=== PATIENT | female | born 1945 | race African-American/Black ===

== ENCOUNTER 2021-06-05 18:44 | Inpatient (IN) | payer OTHER, MEDICAID, SELFPAY ==
[~2021-06-05] VITALS: Ht 172.7 cm; Wt 72.1 kg
[2021-06-05 19:03] VITALS: BP_SYST 143
--- NOTE | 2021-06-05 21:30 | NUR ---
Patient to ER bed hw2 to gown for evaluation. Side rails up. Report given to self.
[2021-06-05 21:37] LABS: HEMATOCRIT 23.8 % (36-48); HEMOGLOBIN 7.7 g/dL (12.0-16.0); MEAN CORPUSCULAR HEMOGLOBIN 22 pg (27-31); MEAN CORPUSCULAR HGB CONC 32 % (32-36); MEAN CORPUSCULAR VOLUME 67 fL (79.0-98.0); PLATELET COUNT (AUTO) 269 K/uL (130-430); RED BLOOD CELL COUNT(AUTO) 3.54 MIL/uL (4.2-6.2); RED CELL DISTRIBUTION WIDTH 30.4 % (9.0-15.0); WHITE BLOOD COUNT (AUTO) 13.6 K/uL (4.8-10.8)
[2021-06-05 21:59] LABS: ANION GAP 6 (5-15); CALCIUM 8.3 mg/dL (8.4-11.0); CHLORIDE 100 mmol/L (98-107); CREATININE 0.69 mg/dL (0.55-1.30); GLUCOSE 100 mg/dL (70-99); SODIUM SERUM 133 mmol/L (136-145); UREA NITROGEN, BLOOD 18 mg/dL (8-21)
[2021-06-05 22:05] LABS: ALANINE AMINOTRANSFERASE 13 U/L (12-78); ALBUMIN 1.2 g/dL (3.4-4.8); ASPARTATE AMINOTRANSFERASE 59 U/L (10-37); TOTAL BILIRUBIN 0.7 mg/dL (0.0-1.0)
[2021-06-05 22:16] LABS: BAND % (MANUAL) 0 % (0-6); BASOPHILS % (MANUAL) 0 % (0-2); EOSINOPHILS % (MANUAL) 0 % (0-7); LYMPHOCYTES % (MANUAL) 5 % (20-46); MONOCYTES % (MANUAL) 7 % (0-11)
[2021-06-05 22:21] LABS: INR 7.5 (0.8-1.2); PROTHROMBIN TIME 72.8 SECS (9.5-12.5)
[2021-06-05 22:30] LABS: POTASSIUM 2.6 mmol/L (3.5-5.1)
[2021-06-05] MEDS ORDERED: POTASSIUM CHLORIDE 20 MEQ TAB.PRT.SR PO ONE (22:45)
[2021-06-05] MEDS ORDERED: MAGNESIUM SULFATE 50 ML IV ONE (22:45)
[2021-06-05] MEDS ORDERED: KCL 40 mEq in 100 mL (PREMIX) 100 ML IV ONE (22:45)
--- NOTE | 2021-06-05 23:30 | NUR ---
Patient resting quietly. No acute distress noted. Vital signs within normal range. patient started on magnesium gtt and medicated w/ 40meq/kcl po (tolerated) will observe for any adverse reaction. bed to low position sr up, continue to monitor.
[2021-06-06] VITALS (7 sets, daily range): BP systolic 112–139
--- NOTE | 2021-06-06 01:30 | NUR ---
Patient resting quietly. No acute distress noted. Vital signs within normal range. iv magnesium completed, no adverse reaction noted. bed to low position sr up, continue to monitor.
[2021-06-06] MEDS ORDERED: KCL 40 mEq in 100 mL (PREMIX) 100 ML IV ONE (02:03)
--- NOTE | 2021-06-06 02:40 | NUR ---
Patient will be admitted to care of Yulia. Admitted to med/surg unit. Will go to room 121. Belongings list completed. Complete and up to date summary report printed. SBAR report to be given at bedside with opportunity for questions. report given to Paco RONQUILLO
--- NOTE | 2021-06-06 02:55 | NUR ---
ADMIT NOTE Received pt from ER to the floor with a diagnosis of HYPERCOAGULOPATHY, HYPOKALEMIA, ELEVATED INR. Admission process initiated. patient oriented to pain management, safety and call light-teach back done.
--- NOTE | 2021-06-06 04:00 | NUR ---
ROUNDING NOTES Patient resting in bed - no s/s pain or distress noted. Respirations even and unlabored - head of bed elevated. IV site patent - no s/s redness, infection, or infiltration. Bed locked and in lowest position. Call light within reach - bed alarm on. Addendum: 06/06/21 at 0744 by Gus Matias RN At 0315 patient was cleaned and linens changed. Sacral dressing applied.
--- NOTE | 2021-06-06 07:29 | NUR ---
CLOSING NOTES Patient resting in bed - no s/s pain or distress noted. Respirations even and unlabored - head of bed elevated. IV site patent - no s/s redness, infection, or infiltration. Bed locked and in lowest position. Call light within reach - bed alarm on.
[2021-06-06] MEDS ORDERED: NALOXONE HCL 0.4 MG/ML AMP (NARCAN) IVP PRN ×2 (07:45)
[2021-06-06] MEDS ORDERED: ONDANSETRON HCL 4 MG/2 ML VIAL IVP PRN (07:45)
[2021-06-06] MEDS ORDERED: LORazepam 2 MG/ML VIAL IVP PRN (07:45)
[2021-06-06] MEDS ORDERED: HYDROcodone/ACETAMIN 5-325 MG TAB (NORCO/ VICODIN) PO PRN (07:45)
[2021-06-06] MEDS ORDERED: ACETAMINOPHEN 325 MG TABLET PO PRN ×2 (07:45→10:45)
--- NOTE | 2021-06-06 08:12 | NUR ---
OPENING NOTES PATIENT EATING BREAKFAST. HOB ELEVATED. NO S/S OF ACUTE DISTRESS NOTED. FALL, SAFETY ANDS ASPIRATION MEASURES REINFORCED. CALL LIGHT WITHIN REACH.
--- NOTE | 2021-06-06 09:54 | NUR ---
RN NOTES: INCONTINENT CARE DONE. NO S/S OF ACUTE DISTRESS NOTED. PATIENT UPGRADED TO TELEMETRY. TELE MONITOR ATTACHED.
[2021-06-06 10:28] LABS: HEMOGLOBIN 8.5 g/dL (12.0-16.0); MEAN CORPUSCULAR HEMOGLOBIN 22 pg (27-31); MEAN CORPUSCULAR HGB CONC 33 % (32-36); MEAN CORPUSCULAR VOLUME 68 fL (79.0-98.0); PLATELET COUNT (AUTO) 263 K/uL (130-430); RED BLOOD CELL COUNT(AUTO) 3.82 MIL/uL (4.2-6.2); RED CELL DISTRIBUTION WIDTH 29.3 % (9.0-15.0); WHITE BLOOD COUNT (AUTO) 14.5 K/uL (4.8-10.8)
[2021-06-06 10:30] LABS: ANION GAP 9 (5-15); CALCIUM 8.7 mg/dL (8.4-11.0); CHLORIDE 101 mmol/L (98-107); CREATININE 0.71 mg/dL (0.55-1.30); GLUCOSE 95 mg/dL (70-99); POTASSIUM 3.8 mmol/L (3.5-5.1); SODIUM SERUM 137 mmol/L (136-145); UREA NITROGEN, BLOOD 15 mg/dL (8-21)
--- NOTE | 2021-06-06 10:36 | NUR ---
ENDORSE CARE: ENDORSED CARE TO SHIMA WALL. INCONTINENT CARE DONE. NO S/S OF ACUTE DISTRESS NOTED. FALL, SAFETY AND ASPIRATION MEASURES RENDERED. CALL LIGHT WITHIN REACH.
[2021-06-06 10:41] LABS: ALANINE AMINOTRANSFERASE 11 U/L (12-78); ALBUMIN 1.2 g/dL (3.4-4.8); ASPARTATE AMINOTRANSFERASE 64 U/L (10-37); INR 5.5 (0.8-1.2); PROTHROMBIN TIME 54.6 SECS (9.5-12.5); TOTAL BILIRUBIN 0.9 mg/dL (0.0-1.0)
--- NOTE | 2021-06-06 11:09 | NUR ---
Nutrition Update Steve Scale 11 noted. Pt admitted for hypercoagulopathy, hypokalemia, elevated INR. Diet: regular BMI: 24.2 kg/m2 RD to follow per nutrition care standards.
[2021-06-06] MEDS ORDERED: NORMAL SALINE 5 ML DISP.SYRIN IVF SCH (14:00)
[2021-06-06] MEDS: NORMAL SALINE 5 ML DISP.SYRIN IVF SCH ×2 (14:00→22:28)
[2021-06-06 14:30] LABS: BASOPHILS % (MANUAL) 0 % (0-2); EOSINOPHILS % (MANUAL) 0 % (0-7); LYMPHOCYTES % (MANUAL) 4 % (20-46); MONOCYTES % (MANUAL) 2 % (0-11)
--- NOTE | 2021-06-07 | NUR ---
Large Stool noted bed bath given kept clean also dry as needed & Reposition / turning tolerated .
[2021-06-07 02:18] VITALS: BP_SYST 137
--- NOTE | 2021-06-07 03:15 | NUR ---
WOUND care sacral areas open skin , cleanse wound bed NSS Hydrogel applied wound bed , covered foam dressing kept clean also dry as needed prn .
[2021-06-07] MEDS: NORMAL SALINE 5 ML DISP.SYRIN IVF SCH ×3 (05:42→21:33)
--- NOTE | 2021-06-07 05:43 | NUR ---
Reposition & Turning off loading with pillows Heels kept elevated , also kept clean & dry as needed activity tolerated no SOB noted .
--- NOTE | 2021-06-07 07:26 | NUR ---
CONSULTATION PAGED/CALLED Reason for Consultation: [] hydronephrosis Person Who was Notified: [] LEFT A VOICE MESSAGE INSTRUCTED Consulting Physician: [] DR JACKELINE MALLOY Showplace Manager Specialty: [] UROLOGIST Ordering Physician: [] DR RUIZ
[2021-06-07 07:38] LABS: MEAN CORPUSCULAR HEMOGLOBIN 22 pg (27-31); MEAN CORPUSCULAR HGB CONC 33 % (32-36); MEAN CORPUSCULAR VOLUME 67 fL (79.0-98.0); PLATELET COUNT (AUTO) 251 K/uL (130-430); RED BLOOD CELL COUNT(AUTO) 3.11 MIL/uL (4.2-6.2); WHITE BLOOD COUNT (AUTO) 12.3 K/uL (4.8-10.8)
[2021-06-07 07:52] VITALS: BP_SYST 130
[2021-06-07 08:04] LABS: ALANINE AMINOTRANSFERASE 8 U/L (12-78); ALBUMIN 1.2 g/dL (3.4-4.8); ANION GAP 9 (5-15); ASPARTATE AMINOTRANSFERASE 39 U/L (10-37); CALCIUM 8.5 mg/dL (8.4-11.0); CHLORIDE 102 mmol/L (98-107); CREATININE 0.62 mg/dL (0.55-1.30); GLUCOSE 95 mg/dL (70-99); POTASSIUM 3.3 mmol/L (3.5-5.1); SODIUM SERUM 137 mmol/L (136-145); THYROID STIMULATING HORMONE 2.93 uIu/mL (0.36-3.74); TOTAL BILIRUBIN 0.8 mg/dL (0.0-1.0); UREA NITROGEN, BLOOD 17 mg/dL (8-21)
[2021-06-07 09:08] LABS: CHOLESTEROL 204 mg/dL (<200); HDL CHOLESTEROL 24 mg/dL (>55); LDL CHOLESTEROL 159 mg/dL (<100); TRIGLYCERIDES 94 mg/dL (30-150)
[2021-06-07 09:58] LABS: HEMOGLOBIN 6.9 g/dL (12.0-16.0)
[2021-06-07 10:20] LABS: INR 4.7 (0.8-1.2); PROTHROMBIN TIME 46.7 SECS (9.5-12.5)
[2021-06-07] MEDS ORDERED: KCL 20 mEq in 100 mL (PREMIX) 100 ML IV ONE (10:30)
[2021-06-07 11:28] VITALS: BP_SYST 111
[2021-06-07 15:38] VITALS: BP_SYST 112
[2021-06-07 15:56] LABS: BASOPHILS % (MANUAL) 0 % (0-2); EOSINOPHILS % (MANUAL) 1 % (0-7); LYMPHOCYTES % (MANUAL) 8 % (20-46); MONOCYTES % (MANUAL) 8 % (0-11)
[2021-06-07 20:00] VITALS: BP_SYST 132
[2021-06-08 00:07] VITALS: BP_SYST 134
[2021-06-08] MEDS: NORMAL SALINE 5 ML DISP.SYRIN IVF SCH ×3 (06:15→22:00)
--- NOTE | 2021-06-08 07:44 | NUR ---
Dietitian Recommendations *Recommend: Cardiac diet w/ Ensure Enlive TID, Diego BID. LONG TERM, RD
[2021-06-08 08:45] VITALS: BP_SYST 146
--- NOTE | 2021-06-08 08:45 | NUR ---
Rec'd pt A+O x2, laying in bed at 0700. Pt denies pain. PICC noted to R arm, L peripheral noted- 20g- S/L. CSMW satisfactory. No headache, dizziness, chest pain, numbess, tingling or edema. Lungs clear. No SOB/cough. RA 97%. BSx4. LBM Jun 07. Void via woodson- clear, yellow urine noted. No N+V. Coccyx wound noted- will change this afternoon. Turn Q2H. VSS. No meds this am to administer. Assist with all ADLs. Will continue to monitor.
[2021-06-08 11:26] VITALS: BP_SYST 108
[2021-06-08 14:16] LABS: INR 4.3 (0.8-1.2); PROTHROMBIN TIME 42.8 SECS (9.5-12.5)
--- NOTE | 2021-06-08 15:00 | NUR ---
WOUND CARE: sacral area- stage 4 coccyx wound noted. cleansed wound with NS, patted dry with gauze, applied Hydrogel, coveredwith foam sacral dressing.
[2021-06-08 15:26] VITALS: BP_SYST 110
[2021-06-08 16:41] LABS: BASOPHILS % (AUTO) 0.2 % (0.0-2.0); EOSINOPHILS # (AUTO) 0.2 K/uL (0.0-0.4); EOSINOPHILS % (AUTO) 1.3 % (0.0-4.0); HEMATOCRIT 26.6 % (36-48); HEMOGLOBIN 8.4 g/dL (12.0-16.0); LYMPHOCYTES # (AUTO) 0.9 K/uL (1.0-5.5); LYMPHOCYTES % (AUTO) 6.5 % (20.5-51.5); MEAN CORPUSCULAR HEMOGLOBIN 22 pg (27-31); MEAN CORPUSCULAR HGB CONC 31 % (32-36); MEAN CORPUSCULAR VOLUME 70 fL (79.0-98.0); MONOCYTES # (AUTO) 0.7 K/uL (0.0-1.0); MONOCYTES % (AUTO) 5.1 % (1.7-9.3); NEUTROPHILS # (AUTO) 11.5 K/uL (1.8-7.7); PLATELET COUNT (AUTO) 279 K/uL (130-430); RED CELL DISTRIBUTION WIDTH 27.7 % (9.0-15.0); WHITE BLOOD COUNT (AUTO) 13.2 K/uL (4.8-10.8)
[2021-06-08 16:58] LABS: NEUTROPHILS % (AUTO) 86.9 % (40.0-70.0)
--- NOTE | 2021-06-08 18:07 | NUR ---
Pt resting in bed eating dinner. No voiced concerns. Call sharp in reach. Bed in low position. Will continue to monitor.
[2021-06-08 23:55] VITALS: BP_SYST 131
[2021-06-09] VITALS (8 sets, daily range): BP systolic 118–134
[2021-06-09] MEDS: NORMAL SALINE 5 ML DISP.SYRIN IVF SCH ×3 (06:22→21:41)
--- NOTE | 2021-06-09 08:30 | NUR ---
Rec'd pt A+O x2, laying in bed at 0700. Pt denies pain. PICC noted to R arm, L peripheral noted- 20g- S/L. CSMW satisfactory. No headache, dizziness, chest pain, numbess, tingling. Edema noted to legs bilat- pitting. Lungs clear. No SOB/cough. RA 100%. BSx4. LBM Jun 09. Void via woodson- clear, yellow urine noted. No N+V. Coccyx wound noted- will change this afternoon. Turn Q2H. VSS. No meds this am to administer. Assist with all ADLs. Will continue to monitor.
[2021-06-09 09:46] LABS: INR 3.7 (0.8-1.2); PROTHROMBIN TIME 37.5 SECS (9.5-12.5)
--- NOTE | 2021-06-09 11:50 | NUR ---
WOUND CARE: sacral area- stage 4 coccyx wound noted. cleansed wound with NS, patted dry with gauze, applied Hydrogel, coveredwith foam sacral dressing.
--- NOTE | 2021-06-09 18:04 | NUR ---
Pt resting in bed eating dinner. No voiced concerns. Call sharp in reach. Bed in low position. Will continue to monitor.
[2021-06-10 00:39] VITALS: BP_SYST 121
[2021-06-10] MEDS: NORMAL SALINE 5 ML DISP.SYRIN IVF SCH ×3 (06:44→22:49)
[2021-06-10 09:50] LABS: PROTHROMBIN TIME 33.7 SECS (9.5-12.5)
[2021-06-10 09:51] LABS: INR 3.3 (0.8-1.2)
--- NOTE | 2021-06-10 10:38 | NUR ---
critical informed RN of critical PT/INR
[2021-06-10 12:00] VITALS: BP_SYST 122
--- NOTE | 2021-06-10 16:55 | NUR ---
WOUND EVALUATION: Wound Consult received from Dr. Bender. Thank you, Dr. Bender, for the consult. Patient received in a Mingus Bed with an Atmos-Air 9000 mattress, awake, alert, confused. Patient is unable to turn in bed independently. Steve Score is a 9. Past Medical History: Metastatic Rectal Cancer, Mechanical heart valve. Recent Labs: WBC 13.2, RBC 3.80, hemoglobin 8.4, hematocrit 26.6, potassium 3.3, AST 39, ALT 8, alkaline phosphatase 194, BNP 689, albumin 1.2, PT 33.7, INR 3.3. Microbiology: MRSA screen results negative. Intrinsic factors that delay wound healing: Severe Hypoalbuminemia. Extrinsic factors that delay wound healing: Immobility. Wound Assessment: 1. Sacral area: Stage 4 pressure ulcer, present on admission. Wound bed has 40% yellow tissue, 55% pink tissue, 5% dark discolored tissue. No odor, scant sanguineous drainage. Undermining present from 74 o'clock (3.6 cm at 9 o'clock; 0.5 cm at 12 o'clock; 1.4 cm at 3 o'clock). Bone is palpable underneath the undermined area around 11 o'clock. Wound measures 9.2 cm x 7.4 cm x 0.9 cm. Recommend: Cleanse wound with normal saline. Apply moisture barrier cream to arturo-wound. Apply Venelex ointment to wound bed. Pack undermined areas with 1/2 inch iodoform packing strip. Cover with Sacral foam dressing. Perform wound care daily, and as needed for dressing soiling or dislodgement. Also recommend: Reposition patient side to side only every 2 hours with pillow support and off-load pressure areas with pillows for pressure re-distribution. Offload, elevate and float bilateral heels with one pillow lengthwise under each extremity. Perform skin care and monitor skin integrity Q shift. Use moisture barrier cream on buttocks and other moisture susceptible areas QID and as needed for soiling. Place patient on a P500 low air-loss mattress. Recommend surgical consult.
[2021-06-10 16:59] VITALS: BP_SYST 120
[2021-06-10 23:29] VITALS: BP_SYST 128
[2021-06-11] VITALS: BP_SYST 126
--- NOTE | 2021-06-11 03:52 | NUR ---
PT SCREAMS WHEN BEING TURNED . BUT CALM WITH NO SIGN OF PAIN WHEN NOT BEING TURNED
[2021-06-11] MEDS: NORMAL SALINE 5 ML DISP.SYRIN IVF SCH ×3 (05:09→21:52)
--- NOTE | 2021-06-11 05:44 | NUR ---
URINE IS VERY CLOUDY
--- NOTE | 2021-06-11 08:00 | NUR ---
PATIENT IS AWAKE, ALERT, ORIENTED X [address] RESPIRATION EVEN AND UNLABORED NO S/S OF ANY ACUTE DISTRESS NOTED. ABLE TO VERBALIZE NEEDS NO C/O ANY PAIN OR DISCOMFORT NOTED. ABDOMEN SOFT AND NON-DISTENDED, POSITIVE BOWEL SOUND X 4 NO N/V OR DIARRHEA NOTED. SKIN WARM AND DRY, WITH MULTIPLE SKIN PROBLEM WITH ONGOING TREATMENT, DRESSING INTACT. WILL CONTINUE TO REASSESS PRN.
[2021-06-11] MEDS: BALSAM PERU/CASTOR OIL 56.7 GM OINT...G. TP SCH ×2 (08:45→08:50)
[2021-06-11 09:00] VITALS: BP_SYST 136
[2021-06-11 13:16] VITALS: BP_SYST 123
[2021-06-11 16:00] VITALS: BP_SYST 116
--- NOTE | 2021-06-11 19:00 | NUR ---
VS STABLE, AFEBRILE, TOLERATED PO WELL WITH FAIR APPETITE NO C/O ANY PAIN OR DISCOMFORT NOTED. F/C CONTINUE TO HAVE CLOUDY COLORED URINE, MD IS AWARE, PATIENT IS ON IV ANTIBIOTIC. ENDORSED PATIENT TO PM SHIFT NURSE.
--- NOTE | 2021-06-11 19:40 | NUR ---
Opening notes Pt alert, awake, no s/s distress noted. Pt fed dinner per ROAD SIGN INSTALLER. OSCAR PICC line saline locked. Crump catheter draining to gravity with cloudy yellow urine w/ sediments. Pt repositioned. Call light within reach. Bed low, locked, siderails up x3, alarm on. To monitor.
[2021-06-11 20:02] VITALS: BP_SYST 129
[2021-06-12 00:21] VITALS: BP_SYST 123
--- NOTE | 2021-06-12 02:59 | NUR ---
Rounds Pt asleep, no s/s distress noted. Crump catheter draining to gravity. Call light within reach. Bed low, locked, siderails up x3, alarm on. To monitor.
--- NOTE | 2021-06-12 05:40 | NUR ---
Closing notes/wound care Pt alert, awake, no s/s distress noted. OSCAR PICC line saline locked. Crump catheter draining to gravity with cloudy yellow urine w/ sediments. Pt repositioned. Wound care to sacral provided per wound care nurse recommendation with iodifoam packing (see assessment). Call light within reach. Bed low, locked, siderails up x3, alarm on. To endorse to AM nurse.
[2021-06-12] MEDS: NORMAL SALINE 5 ML DISP.SYRIN IVF SCH ×3 (05:48→22:06)
[2021-06-12 08:00] VITALS: BP_SYST 126
--- NOTE | 2021-06-12 10:25 | NUR ---
INFECTIOUS DISEASE CONSULT INFORMED RAUL HOPE AT [phone] INFORMED HIM THERE IS CONSULT FOR SACRAL DECUBITUS.
[2021-06-12 10:34] LABS: HEMATOCRIT 28.2 % (36-48); HEMOGLOBIN 8.8 g/dL (12.0-16.0); MEAN CORPUSCULAR HEMOGLOBIN 22 pg (27-31); MEAN CORPUSCULAR HGB CONC 31 % (32-36); MEAN CORPUSCULAR VOLUME 71 fL (79.0-98.0); PLATELET COUNT (AUTO) 294 K/uL (130-430); RED BLOOD CELL COUNT(AUTO) 3.98 MIL/uL (4.2-6.2); RED CELL DISTRIBUTION WIDTH 27.5 % (9.0-15.0)
[2021-06-12 10:36] LABS: WHITE BLOOD COUNT (AUTO) 19.2 K/uL (4.8-10.8)
[2021-06-12 11:07] LABS: ANION GAP 12 (5-15); CALCIUM 8.6 mg/dL (8.4-11.0); CHLORIDE 108 mmol/L (98-107); CREATININE 0.81 mg/dL (0.55-1.30); GLUCOSE 136 mg/dL (70-99); POTASSIUM 3.3 mmol/L (3.5-5.1); PROTHROMBIN TIME 28.6 SECS (9.5-12.5); SODIUM SERUM 145 mmol/L (136-145); UREA NITROGEN, BLOOD 23 mg/dL (8-21)
[2021-06-12 11:13] LABS: ALANINE AMINOTRANSFERASE 9 U/L (12-78); ALBUMIN 1.2 g/dL (3.4-4.8); ASPARTATE AMINOTRANSFERASE 42 U/L (10-37); TOTAL BILIRUBIN 0.9 mg/dL (0.0-1.0)
[2021-06-12 11:35] LABS: ATYPICAL LYMPHOCYTES % 0 % (0-0); BAND % (MANUAL) 0 % (0-6); BASOPHILS % (MANUAL) 0 % (0-2); EOSINOPHILS % (MANUAL) 1 % (0-7); LYMPHOCYTES % (MANUAL) 6 % (20-46); METAMYELOCYTES % 1 % (0-0); MONOCYTES % (MANUAL) 6 % (0-11); MYELOCYTES % 2 % (0-0)
[2021-06-12 12:00] VITALS: BP_SYST 119
[2021-06-12] MEDS ORDERED: CEFEPIME 0.5 GM in D5W 50 ML IV ONE (12:00)
[2021-06-12] MEDS: VANCOMYCIN HCL 750 MG in NS 250 ML IV SCH ×2 (13:00→22:56)
[2021-06-12 16:00] VITALS: BP_SYST 130
[2021-06-12] MEDS: CEFEPIME 0.5 GM in D5W 50 ML IV SCH (22:53)
[2021-06-13 00:37] VITALS: BP_SYST 117
[2021-06-13] MEDS: NORMAL SALINE 5 ML DISP.SYRIN IVF SCH ×3 (05:02→21:02)
[2021-06-13 08:00] VITALS: BP_SYST 125
[2021-06-13] MEDS: BALSAM PERU/CASTOR OIL 56.7 GM OINT...G. TP SCH (09:00)
[2021-06-13 11:37] VITALS: BP_SYST 107
[2021-06-13] MEDS: CEFEPIME 0.5 GM in D5W 50 ML IV SCH (12:07)
[2021-06-13] MEDS: VANCOMYCIN HCL 750 MG in NS 250 ML IV SCH (12:47)
[2021-06-13 15:38] VITALS: BP_SYST 110
[2021-06-13 20:00] VITALS: BP_SYST 120
[2021-06-13] MEDS: HYDROcodone/ACETAMIN 10-325 MG TAB PO PRN (21:38)
[2021-06-14] VITALS: BP_SYST 120
[2021-06-14] MEDS: CEFEPIME 0.5 GM in D5W 50 ML IV SCH ×2 (00:27→14:24)
--- NOTE | 2021-06-14 00:32 | NUR ---
IV antibiotic Administered Maxipime as ordered via IV to LFA; IV site patent; blood return noted. Infusing well, no s/sx of infiltration.
[2021-06-14 00:59] VITALS: BP_SYST 114
[2021-06-14] MEDS: VANCOMYCIN HCL 750 MG in NS 250 ML IV SCH (01:49)
--- NOTE | 2021-06-14 01:54 | NUR ---
IV antibiotic - Vanco Administered Vanco, Infusing well, no s/sx of infiltration.
[2021-06-14] MEDS: NORMAL SALINE 5 ML DISP.SYRIN IVF SCH ×3 (05:25→21:34)
[2021-06-14 08:00] VITALS: BP_SYST 121
--- NOTE | 2021-06-14 08:00 | NUR ---
Closing notes: Pt laying in bed, A/Ox1, no s/s distress noted. OSCAR PICC line saline locked. Crump catheter draining to gravity with cloudy yellow urine w/ sediments. Pt repositioned. Wound care to sacral provided, Fall, safety and pressure ulcer precautions in place, call light within reach. Bed low, locked, siderails up x3, bed alarm on, will endorse to material handler 1st shift.
[2021-06-14] MEDS: BALSAM PERU/CASTOR OIL 56.7 GM OINT...G. TP SCH (09:55)
[2021-06-14] MEDS ORDERED: VANCO (14:02)
[2021-06-14] MEDS ORDERED: CEFEPIME IV (14:02)
[2021-06-14 17:29] VITALS: BP_SYST 122
[2021-06-14 20:00] VITALS: BP_SYST 115; BP_SYST 120
[2021-06-14] MEDS: HYDROcodone/ACETAMIN 10-325 MG TAB PO PRN (21:33)
[2021-06-15 00:49] VITALS: BP_SYST 125
[2021-06-15] MEDS: CEFEPIME 0.5 GM in D5W 50 ML IV SCH ×2 (00:59→12:35)
[2021-06-15] MEDS: NORMAL SALINE 5 ML DISP.SYRIN IVF SCH ×3 (05:52→21:56)
[2021-06-15] MEDS: VANCOMYCIN HCL 1,500 MG in NS 250 ML IV SCH (06:26)
[2021-06-15 07:38] LABS: BASOPHILS # (AUTO) 0.1 K/uL (0.0-0.2); BASOPHILS % (AUTO) 0.7 % (0.0-2.0); EOSINOPHILS # (AUTO) 0.2 K/uL (0.0-0.4); EOSINOPHILS % (AUTO) 1.3 % (0.0-4.0); HEMATOCRIT 27.7 % (36-48); HEMOGLOBIN 8.8 g/dL (12.0-16.0); LYMPHOCYTES # (AUTO) 0.7 K/uL (1.0-5.5); LYMPHOCYTES % (AUTO) 3.7 % (20.5-51.5); MEAN CORPUSCULAR HEMOGLOBIN 23 pg (27-31); MEAN CORPUSCULAR HGB CONC 32 % (32-36); MEAN CORPUSCULAR VOLUME 72 fL (79.0-98.0); MONOCYTES # (AUTO) 0.5 K/uL (0.0-1.0); MONOCYTES % (AUTO) 2.6 % (1.7-9.3); NEUTROPHILS # (AUTO) 17.1 K/uL (1.8-7.7); NEUTROPHILS % (AUTO) 91.7 % (40.0-70.0); PLATELET COUNT (AUTO) 328 K/uL (130-430); RED BLOOD CELL COUNT(AUTO) 3.88 MIL/uL (4.2-6.2); RED CELL DISTRIBUTION WIDTH 27.1 % (9.0-15.0); WHITE BLOOD COUNT (AUTO) 18.7 K/uL (4.8-10.8)
[2021-06-15 07:59] LABS: ANION GAP 8 (5-15); CALCIUM 8.6 mg/dL (8.4-11.0); CHLORIDE 109 mmol/L (98-107); CREATININE 0.73 mg/dL (0.55-1.30); GLUCOSE 102 mg/dL (70-99); POTASSIUM 3.2 mmol/L (3.5-5.1); SODIUM SERUM 146 mmol/L (136-145); UREA NITROGEN, BLOOD 20 mg/dL (8-21)
[2021-06-15 08:00] VITALS: BP_SYST 120
--- NOTE | 2021-06-15 08:00 | NUR ---
Morning rounds: Pt laying in bed, A/Ox1, no s/s distress noted. OSCAR PICC line saline locked. Crump catheter draining to gravity. Fall, safety and pressure ulcer precautions in place, call light within reach. Bed low, locked, siderails up x3, bed alarm on, will continue to monitor.
[2021-06-15 08:09] LABS: INR 2.8 (0.8-1.2)
[2021-06-15] MEDS: BALSAM PERU/CASTOR OIL 56.7 GM OINT...G. TP SCH (10:19)
--- NOTE | 2021-06-15 11:15 | NUR ---
Transfer care: Transfer care of pt to Vera RONQUILLO (Reg).
[2021-06-15 11:26] VITALS: BP_SYST 112
[2021-06-15] MEDS: metroNIDAZOLE 250 mg/NS 50 ML IV SCH ×2 (14:24→21:57)
[2021-06-15 16:00] VITALS: BP_SYST 110
[2021-06-15 20:05] VITALS: BP_SYST 128
--- NOTE | 2021-06-15 21:00 | NUR ---
PT AWAKE,ALERT & ORIENTED X 1-2. NOT IN ACUTE DISTRESS. DENIES PAIN. AFEBRILE. PICC LINE ON OSCAR INTACT & PATENT. SL ON LEFT HAND INTACT & PATENT. IV ABX ADMINISTERED W/ NO A/R NOTED. W/ F/C CONSTANTLY DRAINING YELLOW URINE ADEQUATE OUTPUT. PT W/ STAGE 4 PRESSURE ULCER ON SACRUM, TURNED & REPOSITIONED Q2H. KEPT CLEAN AND COMFORTABLE. CALL LIGHT W/IN REACH.
[2021-06-16 00:52] VITALS: BP_SYST 119
[2021-06-16] MEDS: CEFEPIME 0.5 GM in D5W 50 ML IV SCH ×2 (01:03→12:22)
[2021-06-16] MEDS: metroNIDAZOLE 250 mg/NS 50 ML IV SCH ×3 (06:04→21:59)
[2021-06-16] MEDS: NORMAL SALINE 5 ML DISP.SYRIN IVF SCH ×3 (06:05→21:59)
[2021-06-16 07:57] LABS: ALBUMIN 1.2 g/dL (3.4-4.8); ANION GAP 8 (5-15); ASPARTATE AMINOTRANSFERASE 39 U/L (10-37); CALCIUM 8.8 mg/dL (8.4-11.0); CHLORIDE 110 mmol/L (98-107); CREATININE 0.74 mg/dL (0.55-1.30); GLUCOSE 122 mg/dL (70-99); POTASSIUM 3.5 mmol/L (3.5-5.1); SODIUM SERUM 147 mmol/L (136-145); TOTAL BILIRUBIN 1.2 mg/dL (0.0-1.0); UREA NITROGEN, BLOOD 22 mg/dL (8-21)
[2021-06-16 08:00] VITALS: BP_SYST 111
[2021-06-16] MEDS: BALSAM PERU/CASTOR OIL 56.7 GM OINT...G. TP SCH (08:54)
[2021-06-16 09:23] LABS: ALANINE AMINOTRANSFERASE 5 U/L (12-78)
[2021-06-16] MEDS: VANCOMYCIN HCL 1,500 MG in NS 250 ML IV SCH (09:55)
[2021-06-16 12:00] VITALS: BP_SYST 104
[2021-06-16 16:00] VITALS: BP_SYST 109
--- NOTE | 2021-06-16 18:55 | NUR ---
Note Pt next to nurses' station for close observation all shift. Pt's Crump catheter intact and draining small jennifer drainage. IV in left forearm intact and patent, OSCAR PICC intact and patent at this time as well. Pt next to nurses' station for close observation. Pt checked on q1' and PRN all shift for needs and care. Pt's bed in low position and bed alarm on. Call light within reach.
[2021-06-16 20:00] VITALS: BP_SYST 111
[2021-06-17] VITALS (7 sets, daily range): BP systolic 94–128
[2021-06-17] MEDS: metroNIDAZOLE 250 mg/NS 50 ML IV SCH ×3 (06:35→22:36)
[2021-06-17] MEDS: VANCOMYCIN HCL 1,500 MG in NS 250 ML IV SCH (06:35)
[2021-06-17] MEDS: NORMAL SALINE 5 ML DISP.SYRIN IVF SCH ×3 (06:36→22:36)
[2021-06-17] MEDS: BALSAM PERU/CASTOR OIL 56.7 GM OINT...G. TP SCH (08:54)
[2021-06-17] MEDS: CEFEPIME 0.5 GM in D5W 50 ML IV SCH ×3 (11:21)
--- NOTE | 2021-06-17 14:28 | NUR ---
Nutrition F/U: Admitting Diagnosis Hemorrhagic condition, unspecified. Medical History Comment: Severe symptomatic anemia, Coumadin toxicity, Hx of mechanical heart valve, Metastatic rectal cancer, General debility, Bedbound status, Large decubitus ulcer stage IV per MD notes. Subjective Information Per EMR reviewed, Pt is confused and needs maximum assist during meals. Pt is not yet meeting adequate nutrition with intake of 0-50% most meals, ONS was ordered to help meet need but not in EMR order due to frequency diet change. Skin risk score of 13 note, with sacrum wound s/p detriment. Will clarify supplements to support wound healing. Current Diet Order/Nutrition Support Regular diet x 0 days Patient/Significant Other Unable To Verbalize Education Provided Not Indicated Pertinent Medications zofran, Ativan, NaCL, Pertinent Labs (06/15) WBC: 18.7H, Na: 147H, BUN: 22H, BG 122H, AST: 39H/5L, Alk phos: 177H, Alb: 1.2L Height (Feet) 5 feet Height (Inches) 8.00 inches Weight (Pounds) 159 pounds Weight (Calculated Kilograms) 72.714043 kilograms Patient Weight 72.121 kg Body Mass Index 24.17 kg/m2 %IBW 113 [place]/Adjusted Body Weight 140#/ 64kg Usual Diet At Home Regular diet Estimated Energy Expenditure (kcals/day) 3972-4194 (30-35 kcal/kg CBW for wound healing) Estimated Protein Required (g/day) 108-144 (1.5-2 gm/kg CBW for wound healing) Estimated Fluid Required (l/day) 2.1-2.5 (1ml/calorie for wound healing) Problem/Etiology/Signs/Symptoms Increased nutrient needs r/t metabolic demands AEB estimated calories and protein for wound healing. Altered nutrition related labs r/t ?etiology AEB elevated lipids. Expected Outcomes/Goals Monitor appetite and PO intake w/ goal of pt meeting more than 75% of estimated nutritional needs, labs trending WNL, normal GI function, skin integrity/wt maintenance. Dietitian Recommendations *Clarification: Cardiac diet w/ Ensure Enlive TID, Diego BID. Follow Up High Risk: F/U in 2-3days
--- NOTE | 2021-06-17 14:29 | NUR ---
Dietitian Recommendations *Clarification: Cardiac diet w/ Ensure Enlive TID, Diego BID. Please refer to nutrition assessment for details.
--- NOTE | 2021-06-17 18:55 | NUR ---
Note Pt was checked on q1' and PRN all shift for needs and care. Pt next to nurses' station for close observation. OSCAR PICC site intact and patent. IV in left hand intact and patent. Crump catheter intact and draining. Call light within reach.
[2021-06-18 00:05] VITALS: BP_SYST 128
[2021-06-18] MEDS ORDERED: CEFEPIME 1 GM/VIAL (MAXIPIME) ONE (01:07)
[2021-06-18] MEDS: CEFEPIME 0.5 GM in D5W 50 ML IV SCH (01:24)
[2021-06-18] MEDS: VANCOMYCIN HCL 1,500 MG in NS 250 ML IV SCH (05:29)
[2021-06-18 07:37] LABS: BASOPHILS # (AUTO) 0.1 K/uL (0.0-0.2); BASOPHILS % (AUTO) 0.4 % (0.0-2.0); EOSINOPHILS # (AUTO) 0.1 K/uL (0.0-0.4); EOSINOPHILS % (AUTO) 0.2 % (0.0-4.0); HEMATOCRIT 27.9 % (36-48); HEMOGLOBIN 8.8 g/dL (12.0-16.0); LYMPHOCYTES # (AUTO) 1.5 K/uL (1.0-5.5); LYMPHOCYTES % (AUTO) 5.9 % (20.5-51.5); MEAN CORPUSCULAR HEMOGLOBIN 22 pg (27-31); MEAN CORPUSCULAR HGB CONC 31 % (32-36); MEAN CORPUSCULAR VOLUME 72 fL (79.0-98.0); MONOCYTES # (AUTO) 0.5 K/uL (0.0-1.0); NEUTROPHILS # (AUTO) 23.8 K/uL (1.8-7.7); NEUTROPHILS % (AUTO) 91.5 % (40.0-70.0); PLATELET COUNT (AUTO) 402 K/uL (130-430); RED CELL DISTRIBUTION WIDTH 27.2 % (9.0-15.0)
[2021-06-18 08:00] VITALS: BP_SYST 119
[2021-06-18 08:01] LABS: ALANINE AMINOTRANSFERASE 6 U/L (12-78); ALBUMIN 1.2 g/dL (3.4-4.8); ANION GAP 10 (5-15); ASPARTATE AMINOTRANSFERASE 37 U/L (10-37); CHLORIDE 112 mmol/L (98-107); CREATININE 0.98 mg/dL (0.55-1.30); GLUCOSE 86 mg/dL (70-99); POTASSIUM 3.4 mmol/L (3.5-5.1); SODIUM SERUM 151 mmol/L (136-145); UREA NITROGEN, BLOOD 37 mg/dL (8-21)
[2021-06-18 08:07] LABS: INR 1.8 (0.8-1.2); PROTHROMBIN TIME 17.8 SECS (9.5-12.5)
[2021-06-18] MEDS: BALSAM PERU/CASTOR OIL 56.7 GM OINT...G. TP SCH (08:49)
[2021-06-18 12:00] VITALS: BP_SYST 113
[2021-06-18] MEDS: CEFTAZIDIME/AVIBACTAM 1.25 GM in NS 100 ML IV SCH ×2 (14:00→22:22)
[2021-06-18] MEDS: NORMAL SALINE 5 ML DISP.SYRIN IVF SCH ×2 (14:00→22:23)
[2021-06-18 16:00] VITALS: BP_SYST 112
[2021-06-18] MEDS: WARFARIN SODIUM 2 MG TABLET PO SCH (16:45)
[2021-06-18 20:12] VITALS: BP_SYST 124
[2021-06-18] MEDS: LINEZOLID 300 ML IV SCH (21:38)
[2021-06-19 00:42] VITALS: BP_SYST 124
[2021-06-19] MEDS: CEFTAZIDIME/AVIBACTAM 1.25 GM in NS 100 ML IV SCH ×3 (05:32→21:09)
[2021-06-19] MEDS: NORMAL SALINE 5 ML DISP.SYRIN IVF SCH ×3 (05:53→21:09)
[2021-06-19] MEDS: VANCOMYCIN HCL 1,500 MG in NS 250 ML IV SCH (06:31)
--- NOTE | 2021-06-19 07:24 | NUR ---
Handoff with SHIMA Munoz. Kemar Carbone RN
[2021-06-19 08:00] VITALS: BP_SYST 122
[2021-06-19] MEDS: LINEZOLID 300 ML IV SCH ×2 (08:34→21:09)
[2021-06-19] MEDS: BALSAM PERU/CASTOR OIL 56.7 GM OINT...G. TP SCH (08:34)
[2021-06-19 12:52] VITALS: BP_SYST 123
[2021-06-19 16:53] VITALS: BP_SYST 125
[2021-06-19] MEDS: WARFARIN SODIUM 2 MG TABLET PO SCH (18:13)
[2021-06-19 20:00] VITALS: BP_SYST 128
[2021-06-20] VITALS: BP_SYST 118
[2021-06-20 04:00] VITALS: BP_SYST 121
[2021-06-20] MEDS: CEFTAZIDIME/AVIBACTAM 1.25 GM in NS 100 ML IV SCH ×3 (06:21→22:27)
[2021-06-20] MEDS: NORMAL SALINE 5 ML DISP.SYRIN IVF SCH ×3 (06:21→22:28)
[2021-06-20] MEDS: VANCOMYCIN HCL 1,500 MG in NS 250 ML IV SCH (06:21)
[2021-06-20 08:00] VITALS: BP_SYST 130
[2021-06-20 09:36] LABS: BASOPHILS # (AUTO) 0.1 K/uL (0.0-0.2); BASOPHILS % (AUTO) 0.4 % (0.0-2.0); EOSINOPHILS # (AUTO) 0.2 K/uL (0.0-0.4); EOSINOPHILS % (AUTO) 0.9 % (0.0-4.0); HEMATOCRIT 28.4 % (36-48); HEMOGLOBIN 8.8 g/dL (12.0-16.0); LYMPHOCYTES # (AUTO) 0.8 K/uL (1.0-5.5); MEAN CORPUSCULAR HEMOGLOBIN 22 pg (27-31); MEAN CORPUSCULAR HGB CONC 31 % (32-36); MEAN CORPUSCULAR VOLUME 71 fL (79.0-98.0); MONOCYTES # (AUTO) 0.5 K/uL (0.0-1.0); MONOCYTES % (AUTO) 2.7 % (1.7-9.3); NEUTROPHILS # (AUTO) 18.4 K/uL (1.8-7.7); PLATELET COUNT (AUTO) 432 K/uL (130-430); RED BLOOD CELL COUNT(AUTO) 3.99 MIL/uL (4.2-6.2); RED CELL DISTRIBUTION WIDTH 26.1 % (9.0-15.0)
[2021-06-20 09:43] LABS: PROTHROMBIN TIME 19.4 SECS (9.5-12.5)
[2021-06-20 09:45] LABS: ANION GAP 11 (5-15); CALCIUM 8.5 mg/dL (8.4-11.0); CHLORIDE 115 mmol/L (98-107); CREATININE 1.16 mg/dL (0.55-1.30); GLUCOSE 101 mg/dL (70-99); SODIUM SERUM 151 mmol/L (136-145); UREA NITROGEN, BLOOD 41 mg/dL (8-21)
[2021-06-20 09:56] LABS: ALANINE AMINOTRANSFERASE 6 U/L (12-78); ALBUMIN 1.1 g/dL (3.4-4.8); ASPARTATE AMINOTRANSFERASE 43 U/L (10-37); TOTAL BILIRUBIN 0.9 mg/dL (0.0-1.0)
[2021-06-20] MEDS: BALSAM PERU/CASTOR OIL 56.7 GM OINT...G. TP SCH (09:59)
[2021-06-20] MEDS: LINEZOLID 300 ML IV SCH ×2 (09:59→22:26)
[2021-06-20] MEDS ORDERED: POTASSIUM CHLORIDE 20 MEQ/PKT PACKET PO ONE (10:30)
[2021-06-20 12:00] VITALS: BP_SYST 119
[2021-06-20] MEDS ORDERED: WARFARIN SODIUM 5 MG TABLET PO SCH (17:00)
[2021-06-20 17:03] VITALS: BP_SYST 125
[2021-06-20 20:00] VITALS: BP_SYST 110
--- NOTE | 2021-06-20 20:00 | NUR ---
SHIFT NOTE REC'D PT LYING IN BED, AOX1, NO DISTRESS OR DISCOMFORT NOTED, BREATHING EVEN AND UNLABORED, SATURATION ON ROOM AIR, PT DENIES PAIN, BED IN LOWEST POSITION,CALL LIGHT WITHIN IMMEDIATE REACH, MORATAYA CATH NOTED AND DRAINING, RIGHT ARM CONTRACTURES NOTED, PICC OSCAR NOTED PATENT AND INTACT, REPOSITIONED PER COMFORT,WILL CONTINUE TO MONITOR.
--- NOTE | 2021-06-21 | NUR ---
NO CHANGES NOTED FROM PREVIOUS ASSESSMENT, WILL CONTINUE TO MONITOR.
[2021-06-21 01:00] VITALS: BP_SYST 124
--- NOTE | 2021-06-21 04:30 | NUR ---
NO S/S OF DISTRESS OR DISCOMFORT NOTED, BREATHING EVEN AND UNLABORED, BED IN LOWEST POSITION, CALL LIGHT WITHIN IMMEDIATE REACH, WILL CONTINUE TO MONITOR.
[2021-06-21] MEDS: VANCOMYCIN HCL 1,500 MG in NS 250 ML IV SCH (05:26)
[2021-06-21] MEDS: CEFTAZIDIME/AVIBACTAM 1.25 GM in NS 100 ML IV SCH ×3 (05:26→22:22)
[2021-06-21] MEDS: NORMAL SALINE 5 ML DISP.SYRIN IVF SCH ×3 (05:27→21:08)
--- NOTE | 2021-06-21 07:43 | NUR ---
SHIFT REPORT REPORT GIVEN TO SHIMA DAVIS FOR CONTINUITY OF CARE, ALL QUESTIONS WERE ANSWERED AND RN VERBALIZED UNDERSTANDING.
[2021-06-21 08:20] LABS: INR 1.9 (0.8-1.2); PROTHROMBIN TIME 18.4 SECS (9.5-12.5)
[2021-06-21 09:00] VITALS: BP_SYST 106
--- NOTE | 2021-06-21 09:00 | NUR ---
Rec'd pt A+O x1- name only, laying in bed at 0700. Pt denies pain. PICC noted to R arm, L peripheral noted- 20g- S/L. CSMW satisfactory. No headache, dizziness, chest pain, numbess, tingling. Edema noted to legs bilat- pitting. Lungs diminished. No SOB/cough. RA 93%. BSx4. LBM Jun 21. Void via woodson- clear, yellow urine noted. No N+V. Coccyx wound noted- will change this afternoon. Turn Q2H. VSS. Assist with all ADLs. Will continue to monitor.
[2021-06-21] MEDS: LINEZOLID 300 ML IV SCH ×2 (09:46→21:08)
[2021-06-21 10:48] LABS: ALANINE AMINOTRANSFERASE 10 U/L (12-78); ALBUMIN 1.3 g/dL (3.4-4.8); ANION GAP 10 (5-15); ASPARTATE AMINOTRANSFERASE 39 U/L (10-37); CALCIUM 8.3 mg/dL (8.4-11.0); CHLORIDE 116 mmol/L (98-107); CREATININE 1.22 mg/dL (0.55-1.30); GLUCOSE 100 mg/dL (70-99); POTASSIUM 3.1 mmol/L (3.5-5.1); SODIUM SERUM 155 mmol/L (136-145); TOTAL BILIRUBIN 0.8 mg/dL (0.0-1.0); UREA NITROGEN, BLOOD 40 mg/dL (8-21)
[2021-06-21 11:32] VITALS: BP_SYST 120
[2021-06-21 15:21] VITALS: BP_SYST 131
[2021-06-21] MEDS: BALSAM PERU/CASTOR OIL 56.7 GM OINT...G. TP SCH (16:00)
--- NOTE | 2021-06-21 16:30 | NUR ---
WOUND CARE: Wound cleansed with NS, patted dry with gauze, venelex applied to wound base, packed with 2 bottles of 1/4" packing and covered with a sacral dressing.
[2021-06-21] MEDS ORDERED: WARFARIN SODIUM 4 MG TABLET PO SCH (17:00)
--- NOTE | 2021-06-21 18:29 | NUR ---
Pt resting in bed eating dinner. No voiced concerns. Call sahrp in reach. Bed in low position. Will continue to monitor.
[2021-06-21 20:00] VITALS: BP_SYST 125
--- NOTE | 2021-06-21 20:00 | NUR ---
Received resting in bed; no apparent distress. Breathing adequately on RA. Repositioned for comfort. OSCAR picc line in patent/intact. No signs of bleeding/infection noted to site. FC bag emptied; 800 ml of clear/yellow urine voided at this time. Bed in low position. Safety precautions observed
[2021-06-22 00:17] VITALS: BP_SYST 116
[2021-06-22 04:21] VITALS: BP_SYST 121
[2021-06-22] MEDS: NORMAL SALINE 5 ML DISP.SYRIN IVF SCH ×3 (05:14→21:55)
[2021-06-22] MEDS: CEFTAZIDIME/AVIBACTAM 1.25 GM in NS 100 ML IV SCH ×3 (05:22→21:40)
[2021-06-22 08:45] VITALS: BP_SYST 123
[2021-06-22] MEDS: LINEZOLID 300 ML IV SCH ×2 (08:51→21:39)
--- NOTE | 2021-06-22 09:00 | NUR ---
Rec'd pt A+O x1- name only, laying in bed at 0700. Pt denies pain. PICC noted to R arm, L peripheral noted- 20g- S/L. CSMW satisfactory. No headache, dizziness, chest pain, numbess, tingling. Edema noted to legs bilat- pitting. Lungs diminished. No SOB/cough. RA 94%. BSx4. LBM Jun 21. Void via woodson- clear, yellow urine noted. No N+V. Coccyx wound noted- will change this afternoon. Turn Q2H. VSS. Assist with all ADLs. Will continue to monitor.
[2021-06-22 09:04] LABS: INR 2.1 (0.8-1.2); PROTHROMBIN TIME 20.7 SECS (9.5-12.5)
[2021-06-22 11:35] VITALS: BP_SYST 105
[2021-06-22 16:13] VITALS: BP_SYST 100
--- NOTE | 2021-06-22 17:20 | NUR ---
WOUND CARE: Wound cleansed with NS, patted dry with gauze, venelex applied to wound base, packed with saline soaked gauze as per Amaury (wound care) covered with a sacral dressing.
[2021-06-22 20:00] VITALS: BP_SYST 98
--- NOTE | 2021-06-22 21:00 | NUR ---
PT AWAKE,ALERT. NOT IN ANY ACUTE DISTRESS/SOB. RESP EVEN & UNLABORED. AFEBRILE. DENIES PAIN. RDV6=736% ON RA. DOUBLE LUMEN PICC LINE ON OSCAR INTACT & PATENT. ON IVF D5W @ 70CC/HR. ON IVABX FOR VRE URINE, NO A/R NOTED. W/ F/C INTACT CONSTANTLY DRAINING CLEAR YELLOW URINE, ADEQUATE OUTPUT. W/ SACRAL STAGE 4 PRESSURE ULCER, TREATMENT RENDERED ORDERED. TURNED & REPOSITIONED Q2H. ON AGNES MATTRESS. WILL CON'T TO MONITOR. NEEDS ANTICIPATED & ATTENDED TO. CALL LIGHT W/IN REACH. FREQ VISUAL CHECKS.
[2021-06-23 00:14] VITALS: BP_SYST 104
[2021-06-23] MEDS: CEFTAZIDIME/AVIBACTAM 1.25 GM in NS 100 ML IV SCH ×3 (05:27→22:56)
[2021-06-23] MEDS: NORMAL SALINE 5 ML DISP.SYRIN IVF SCH ×3 (05:28→22:57)
[2021-06-23 08:00] VITALS: BP_SYST 122
--- NOTE | 2021-06-23 08:00 | NUR ---
patient in bed, no s/s of distress, patient confused, rarely speaks and is confused but follow commands, satnam picc intact patent with blood return, woodson draining clear jennifer urine, isolation for urine contact, sacral dressing clean dry and intact, bed in lowest locked position, call light within reach, will continue to monitor.
[2021-06-23] MEDS: LINEZOLID 300 ML IV SCH ×2 (09:22→21:21)
[2021-06-23] MEDS: BALSAM PERU/CASTOR OIL 56.7 GM OINT...G. TP SCH (09:23)
[2021-06-23] MEDS: D5W 1,000 ML IV SCH ×2 (09:23→21:22)
--- NOTE | 2021-06-23 10:00 | NUR ---
spoke with dr barraza and asked if it is ok to draw blood from patient PICC line, ordered to allow for blood draw from PICC line as needed.
[2021-06-23 10:04] LABS: INR 2.4 (0.8-1.2); PROTHROMBIN TIME 24.2 SECS (9.5-12.5)
[2021-06-23 11:32] VITALS: BP_SYST 135
[2021-06-23 13:29] LABS: BASOPHILS % (AUTO) 0.2 % (0.0-2.0); EOSINOPHILS # (AUTO) 0.3 K/uL (0.0-0.4); EOSINOPHILS % (AUTO) 1.8 % (0.0-4.0); HEMATOCRIT 26.1 % (36-48); HEMOGLOBIN 8.1 g/dL (12.0-16.0); LYMPHOCYTES # (AUTO) 0.7 K/uL (1.0-5.5); LYMPHOCYTES % (AUTO) 3.6 % (20.5-51.5); MEAN CORPUSCULAR HEMOGLOBIN 22 pg (27-31); MEAN CORPUSCULAR HGB CONC 31 % (32-36); MEAN CORPUSCULAR VOLUME 72 fL (79.0-98.0); MONOCYTES # (AUTO) 0.4 K/uL (0.0-1.0); NEUTROPHILS # (AUTO) 16.7 K/uL (1.8-7.7); NEUTROPHILS % (AUTO) 92.4 % (40.0-70.0); PLATELET COUNT (AUTO) 287 K/uL (130-430); RED BLOOD CELL COUNT(AUTO) 3.62 MIL/uL (4.2-6.2); RED CELL DISTRIBUTION WIDTH 26.5 % (9.0-15.0)
[2021-06-23 13:45] LABS: CALCIUM 8.4 mg/dL (8.4-11.0); CHLORIDE 113 mmol/L (98-107); CREATININE 1.24 mg/dL (0.55-1.30); GLUCOSE 93 mg/dL (70-99); UREA NITROGEN, BLOOD 51 mg/dL (8-21)
[2021-06-23 13:51] LABS: WHITE BLOOD COUNT (AUTO) 18.1 K/uL (4.8-10.8)
[2021-06-23 14:00] LABS: ANION GAP 8 (5-15); SODIUM SERUM 150 mmol/L (136-145)
[2021-06-23 14:03] LABS: POTASSIUM 2.9 mmol/L (3.5-5.1)
[2021-06-23] MEDS ORDERED: POTASSIUM CHLORIDE 20 MEQ/PKT PACKET PO ONE (15:00)
--- NOTE | 2021-06-23 15:00 | NUR ---
spoke with dr barraza, reported critical potassium of 2.9, ordered to replace with 40mEq of oral potassium and to recheck potassium level in 4 hours.
--- NOTE | 2021-06-23 15:30 | NUR ---
lab notified to check patient potassium in 4 hours.
[2021-06-23 16:07] VITALS: BP_SYST 130
[2021-06-23] MEDS ORDERED: WARFARIN SODIUM 5 MG TABLET PO ONE (17:00)
--- NOTE | 2021-06-23 19:03 | NUR ---
patient in bed, no s/s of distress, patient confused, rarely speaks and is confused but follow commands, satnam picc intact patent with blood return, woodson draining clear jennifer urine, isolation for urine contact, sacral dressing clean dry and intact, bed in lowest locked position, call light within reach, will endorse to manufacturing supervisor 2nd shift to monitor for results of K+ and to call for orders as needed.
[2021-06-23 20:00] VITALS: BP_SYST 117
--- NOTE | 2021-06-24 01:00 | NUR ---
PT ASLEEP. REPEAT POTASSIUM LEVEL 3.7, WNL.NOT IN ANY ACUTE DISTRESS/SOB. RESP EVEN & UNLABORED. AFEBRILE. DENIES PAIN. VCV0=156% ON RA. DOUBLE LUMEN PICC LINE ON OSCAR INTACT & PATENT. ON IVF D5W @ 70CC/HR. ON IVABX FOR VRE URINE, NO A/R NOTED. CONTACT ISOLATION PRECAUTIONS OBSERVED & PRACTICED W/ F/C INTACT CONSTANTLY DRAINING YELLOW URINE, ADEQUATE OUTPUT. W/ SACRAL STAGE 4 PRESSURE ULCER, TREATMENT RENDERED ORDERED. TURNED & REPOSITIONED Q2H. ON AGNES MATTRESS. WILL CON'T TO MONITOR. NEEDS ANTICIPATED & ATTENDED TO. CALL LIGHT W/IN REACH. FREQ VISUAL CHECKS.
[2021-06-24 01:14] VITALS: BP_SYST 127
[2021-06-24] MEDS: CEFTAZIDIME/AVIBACTAM 1.25 GM in NS 100 ML IV SCH (06:17)
[2021-06-24] MEDS: NORMAL SALINE 5 ML DISP.SYRIN IVF SCH ×3 (06:18→20:56)
[2021-06-24 08:54] LABS: INR 2.2 (0.8-1.2); PROTHROMBIN TIME 22.2 SECS (9.5-12.5)
[2021-06-24] MEDS: LINEZOLID 300 ML IV SCH (09:05)
[2021-06-24] MEDS: BALSAM PERU/CASTOR OIL 56.7 GM OINT...G. TP SCH (09:06)
--- NOTE | 2021-06-24 10:20 | NUR ---
CONSULTATION: REASON FOR CONSULT: HYPERNATREMIA CONSULTING PHYSICIAN: VIVEK, ORDERED BY: JOSEPH SPOKE WITH SHAKIRA [phone]
--- NOTE | 2021-06-24 11:00 | NUR ---
patient rapid covid test is pending and discharge is being planned healthcare partner kaylyn. will follow up and complete discharge once ordered.
[2021-06-24 12:00] VITALS: BP_SYST 121
[2021-06-24] MEDS: D5W 1,000 ML IV SCH ×2 (12:42→21:05)
[2021-06-24] MEDS: CEFEPIME 1 GM in D5W 50 ML IV SCH (12:42)
[2021-06-24 13:15] LABS: BASOPHILS # (AUTO) 0.1 K/uL (0.0-0.2); BASOPHILS % (AUTO) 0.3 % (0.0-2.0); EOSINOPHILS # (AUTO) 0.3 K/uL (0.0-0.4); EOSINOPHILS % (AUTO) 1.8 % (0.0-4.0); HEMOGLOBIN 7.8 g/dL (12.0-16.0); LYMPHOCYTES # (AUTO) 0.5 K/uL (1.0-5.5); LYMPHOCYTES % (AUTO) 3.3 % (20.5-51.5); MEAN CORPUSCULAR HEMOGLOBIN 23 pg (27-31); MEAN CORPUSCULAR HGB CONC 31 % (32-36); MEAN CORPUSCULAR VOLUME 72 fL (79.0-98.0); MONOCYTES # (AUTO) 0.4 K/uL (0.0-1.0); MONOCYTES % (AUTO) 2.4 % (1.7-9.3); NEUTROPHILS # (AUTO) 15.1 K/uL (1.8-7.7); NEUTROPHILS % (AUTO) 92.2 % (40.0-70.0); PLATELET COUNT (AUTO) 298 K/uL (130-430); RED BLOOD CELL COUNT(AUTO) 3.45 MIL/uL (4.2-6.2); RED CELL DISTRIBUTION WIDTH 25.6 % (9.0-15.0); WHITE BLOOD COUNT (AUTO) 16.4 K/uL (4.8-10.8)
[2021-06-24 13:33] LABS: ANION GAP 8 (5-15); CALCIUM 8.4 mg/dL (8.4-11.0); CHLORIDE 110 mmol/L (98-107); CREATININE 1.24 mg/dL (0.55-1.30); GLUCOSE 101 mg/dL (70-99); POTASSIUM 3.4 mmol/L (3.5-5.1); SODIUM SERUM 146 mmol/L (136-145); UREA NITROGEN, BLOOD 48 mg/dL (8-21)
[2021-06-24 13:37] LABS: ALANINE AMINOTRANSFERASE 6 U/L (12-78); ALBUMIN 1.1 g/dL (3.4-4.8); ASPARTATE AMINOTRANSFERASE 40 U/L (10-37); TOTAL BILIRUBIN 0.6 mg/dL (0.0-1.0)
--- NOTE | 2021-06-24 14:58 | NUR ---
Nutrition F/U: RD reviewed pt's current EMR record including diet Hx, physician notes, nursing notes, pertinent labs/meds/procedures, care trends, and care activity. Admitting Diagnosis Hemorrhagic condition, unspecified. Medical History Comment: Severe symptomatic anemia, Coumadin toxicity, Hx of mechanical heart valve, Metastatic rectal cancer, General debility, Bedbound status, Large decubitus ulcer stage IV per MD notes. Subjective Information Per EMR reviewed, Pt remains confused and needs maximum assist during meals. Pt is not yet meeting adequate nutrition with intake of 0-50% most meals, ONS was ordered to help meet need but not in EMR order due to frequency diet change. Skin risk score of 11 note, with sacrum wound stage 4 PI, may benefit from wound healing supplements. Lab reviewed w/ anemia, may benefit from Fe supplement. Current Diet Order/Nutrition Support Cardiac diet, Ensure Enlive TID, Diego BID x 6 days Patient/Significant Other Unable To Verbalize Education Provided Not Indicated Pertinent Medications zofran, Ativan, NaCL, D5W @ 70CC/HR (287 kcal/d), warfarin, NaCL Pertinent Labs (06/24) WBC: 16.4H, H/H: 7.8L/25L, MCV: 72L, MCH: 23L, Na: 146 H, K: 3.4L, BUN: 48H, BG 101H, AST: 40H/6L, Alk phos: 164H, Alb: 1.1L Height (Feet) 5 feet Height (Inches) 8.00 inches Weight (Pounds) 159 pounds Weight (Calculated Kilograms) 72.236209 kilograms Patient Weight 72.121 kg Body Mass Index 24.17 kg/m2 %IBW 113 [place]/Adjusted Body Weight 140#/ 64kg Usual Diet At Home Regular diet Estimated Energy Expenditure (kcals/day) 0080-9490 (30-35 kcal/kg CBW for wound healing) Estimated Protein Required (g/day) 108-144 (1.5-2 gm/kg CBW for wound healing) Estimated Fluid Required (l/day) 2.1-2.5 (1ml/calorie for wound healing) Problem/Etiology/Signs/Symptoms Increased nutrient needs r/t metabolic demands AEB estimated calories and protein for wound healing (*on going). Expected Outcomes/Goals Monitor appetite and PO intake w/ goal of pt meeting more than 75% of estimated nutritional needs, labs trending WNL, normal GI function, skin integrity/wt maintenance. Dietitian Recommendations *Continue Cardiac diet w/ Ensure Enlive TID, Diego BID. * Multivitamin 1 tab daily * ferrous sulfate 1 tab daily x 30days * Prosource 1pkt daily * Vitamin C 500mg daily x 30days * zinc sulfate 220mg daily x 14 days. Follow Up Moderate Risk: F/U in 3-5 days
[2021-06-24 16:00] VITALS: BP_SYST 125
--- NOTE | 2021-06-24 17:00 | NUR ---
patient discharge will most likely be tomorrow. will endorse information to wealth management manager. safety measures in place, turned q2h, will continue to monitor
[2021-06-24] MEDS ORDERED: POTASSIUM CHLORIDE 20 MEQ/PKT PACKET PO ONE (17:45)
--- NOTE | 2021-06-24 19:08 | NUR ---
patient in bed, no s/s of distress, patient confused, rarely speaks and is confused but follows commands, satnam picc intact patent with blood return, woodson draining clear jennifer urine, isolation for urine contact, sacral dressing clean dry and intact, bed in lowest locked position, call light within reach, will endorse continuation of care to warehouse supervisor 3rd shift
[2021-06-24] MEDS: metroNIDAZOLE 500 mg/NS 100 ML IV SCH (20:54)
[2021-06-24] MEDS: POTASSIUM CHLORIDE 20 MEQ/PKT PACKET PO SCH (20:55)
--- NOTE | 2021-06-24 21:35 | NUR ---
PT in bed resting, eyes closed, breathing regular , resting quietly, no acute distress. Will continue to monitor
[2021-06-25 00:30] VITALS: BP_SYST 134
--- NOTE | 2021-06-25 01:25 | NUR ---
PT in bed asleep, breathing even and unlabored. No acute distress noted. Will continue to monitor.
--- NOTE | 2021-06-25 05:55 | NUR ---
Cleansed sacral wound with normal saline, applied sure prep to periwound of sacral, applied ointment to wound bed, covered wound with sacral foam dressing. PT tolerated wound care well. Repositioned PT to left side with pillow placed under right arm.
[2021-06-25] MEDS ORDERED: CEFIDEROCOL SULFATE TOSYLATE 2 GM in NS 100 ML IV SCH (06:00)
[2021-06-25] MEDS: NORMAL SALINE 5 ML DISP.SYRIN IVF SCH ×2 (06:27→14:25)
--- NOTE | 2021-06-25 07:13 | NUR ---
Change of shift report provided to dayshift RN, all questions answered
--- NOTE | 2021-06-25 08:00 | NUR ---
OPENING NOTES: PATIENT RESTING IN BED. BREATHING EVEN AND NO LABORED TO RA. IV INFUSING WELL. FALL, SAFETY AND ASPIRATION MEASURES REINFORCED. CALL LIGHT WITHIN REACH.
[2021-06-25 08:09] LABS: INR 2.8 (0.8-1.2); PROTHROMBIN TIME 27.8 SECS (9.5-12.5)
[2021-06-25 08:15] VITALS: BP_SYST 138
[2021-06-25] MEDS: POTASSIUM CHLORIDE 20 MEQ/PKT PACKET PO SCH (08:20)
[2021-06-25] MEDS: metroNIDAZOLE 500 mg/NS 100 ML IV SCH (08:21)
[2021-06-25] MEDS: BALSAM PERU/CASTOR OIL 56.7 GM OINT...G. TP SCH (08:22)
[2021-06-25 11:21] LABS: ANION GAP 9 (5-15); CHLORIDE 110 mmol/L (98-107); POTASSIUM 5.2 mmol/L (3.5-5.1); SODIUM SERUM 144 mmol/L (136-145)
[2021-06-25 11:22] LABS: CALCIUM 8.5 mg/dL (8.4-11.0); CREATININE 1.37 mg/dL (0.55-1.30); GLUCOSE 133 mg/dL (70-99); PHOSPHORUS 1.8 mg/dL (2.7-4.5); UREA NITROGEN, BLOOD 48 mg/dL (8-21)
[2021-06-25 12:00] VITALS: BP_SYST 128
[2021-06-25] MEDS: CEFEPIME 1 GM in D5W 50 ML IV SCH (12:11)
--- NOTE | 2021-06-25 16:26 | NUR ---
Wound care and photo taken. Wound care done and photo taken for discharge. Incontinent care done.
[2021-06-25 16:34] VITALS: BP_SYST 132
--- NOTE | 2021-06-25 16:47 | NUR ---
NOLAN LOCKETT INFORMED: LEVY, THE DAUGHTER INFORMED OF PATIENTS TRANSFER TO [facility].
--- NOTE | 2021-06-25 16:48 | NUR ---
SPOKE TO SHIMA ENGLAND : REPORT GIVEN TO SHIMA ENGLAND OF [place].
[2021-06-25 17:01] VITALS: BP_SYST 132
--- NOTE | 2021-06-25 17:30 | NUR ---
D/C Patient Patient transferred to [facility] via [facility] and given medication reconciliation form and D/C instructions. Exit Care provided. discussed with patient the results and treatment provided. Patient in stable condition, ID band removed. PICC AND MORATAYA in placed. All belongings sent with patient.
[2021-06-25] MEDS ORDERED: WARFARIN SODIUM 3 MG TABLET PO ONE (18:00)
== END 2021-06-25 17:45 | DRG 871 ==
LOC: SED 18:44 → SMU 23:48 → STU 06-06 20:03 → SMU 06-09 09:50
PROVIDERS: ADMIT Internal Medicine Hospice and Palliative Medicine; ATTEND Internal Medicine Hospice and Palliative Medicine
PROC: 30233N1 Transfusion of Nonautologous Red Blood Cells into Peripheral Vein, Percutaneous Approach (ICD-10-PCS; principal; 2021-06-07)
PROC: 02HV33Z Insertion of Infusion Device into Superior Vena Cava, Percutaneous Approach (ICD-10-PCS; 2021-06-07)
DX: A41.9 Sepsis, unspecified organism (principal); L89.154 Pressure ulcer of sacral region, stage 4; E43 Unspecified severe protein-calorie malnutrition; K57.31 Diverticulosis of large intestine without perforation or abscess with bleeding; Q87.40 Marfan syndrome, unspecified; C20 Malignant neoplasm of rectum; N13.6 Pyonephrosis; D68.59 Other primary thrombophilia; M86.8X8 Other osteomyelitis, other site; D61.9 Aplastic anemia, unspecified; D62 Acute posthemorrhagic anemia; E87.6 Hypokalemia; J44.9 Chronic obstructive pulmonary disease, unspecified; R53.81 Other malaise; T45.515A Adverse effect of anticoagulants, initial encounter; F17.210 Nicotine dependence, cigarettes, uncomplicated; Z20.822 Contact with and (suspected) exposure to COVID-19; Z74.01 Bed confinement status; Z79.01 Long term (current) use of anticoagulants; Z95.2 Presence of prosthetic heart valve; Z68.24 Body mass index [BMI] 24.0-24.9, adult; Y92.89 Other specified places as the place of occurrence of the external cause
CPT/HCPCS: 36415; 36430; 71045; 76376; 80048; 80053; 80061; 80202; 83735; 83880; 84100; 84132; 84443; 84484; 85007; 85025; 85027; 85610-TC; 85730-TC; 86886; 86900; 86901; 86920; 87040; 87081; 87086; 87186-TC; 93005; 93306; 96365; 96366; 96367; 99285; G0378; J0692; J0713; J2020; J3370; J3475; J3480; J3490; J7050; J7060; P9021